=== PATIENT | male | born 1985 | race Caucasian/White ===

== ENCOUNTER 2016-12-12 15:57 | Emergency (ER) | payer OTHER ==
[~2016-12-12] VITALS: Ht 177.8 cm; Wt 72.0 kg
[2016-12-12 16:10] VITALS: TEMP 36.7; Ht 177.8 cm; Wt 72.0 kg
[2016-12-12] MEDS ORDERED: SODIUM CHLORIDE 0.9% 1000ML 1,000 ML IV STA ×2 (16:11)
[2016-12-12] MEDS ORDERED: CLON0.5T3 PO (16:28)
[2016-12-12] MEDS ORDERED: DULO60CA44 PO (16:28)
[2016-12-12 16:47] LABS: BASO % 0.4 %; BASO ABS # 0.03 K/uL (0-0.2); COMPLETE YES; EOS % 2.5 %; HEMATOCRIT 41.9 % (42-52); IG% 0.1 %; LYMPH % 22.1 %; LYMPH ABS # 1.56 K/uL (1.2-3.4); MEAN CELL VOLUME 85.2 fL (80-100); MEAN CORPUSCULAR HEMOGLOBIN 30.1 pg (25-34); MEAN CORPUSCULAR HGB CONC 35.3 g/dl (32-36); MEAN PLATELET VOLUME 9.8 fL (7.4-10.4); MONO % 8.6 %; NEUT % 66.3 %; PLATELET COUNT 237 K/uL (130-400); RED BLOOD COUNT 4.92 M/uL (4.7-6.1); WHITE BLOOD COUNT 7.07 K/uL (4.8-10.8)
--- NOTE | 2016-12-12 16:57 | EMERGENCY ROOM VISIT NOTE ---
History Report prepared by Yaron: Joce Glaser Under the Supervision of: Dr. Neri Terry M.D. First contact with patient: 16:04 Chief Complaint: SEIZURE Stated Complaint: SEIZURE History of Present Illness The patient is a 31 year old male who presents to the Emergency Room via EMS with complaints of a seizure occurring today. The patient reports being at baseline earlier today. He denies any recent illnesses. 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 He denies feeling lightheaded or having any chest pain prior to the event. He denies remembering the seizure. He lost consciousness and woke up with people standing over him. As per EMS report, the patient had a witnessed seizure which lasted for about 1 minute. He fell and hit his left upper lip. He bit his tongue. He did not have any bowel or urinary incontinence. He was post-ictal for about 2 minutes. The patient currently feels at baseline. He denies any pain. He denies headache, chest pain , shortness of breath, or any other complaints. The patient normally has a small appetite but he tried to eat a large meal today. The patient denies any prior history of seizures. He takes Cymbalta and Klonopin for anxiety. He denies any recent changes in medications. As per brother, the patient uses a large amount of supplements. The patient's brother believes that they are all legally obtained. Source of History: patient, EMS Onset: today Position: other (global) Symptom Intensity: No pain Quality: other (seizure) Associated Symptoms: No SOB, No chest pain, No headache Review of Systems See HPI for pertinent positives & negatives. A total of 10 systems reviewed and were otherwise negative. Past Medical & Surgical Medical Problems: (1) Anxiety Family History Patient reports no known family medical history. Social History Marital Status: single Occupation Status: employed Current/Historical Medications Scheduled Clonazepam (Klonopin), 0.5 MG PO HS Duloxetine Hcl (Cymbalta), 60 MG PO HS Allergies Coded Allergies: No Known Allergies (Unverified , 12/12/16) Physical Exam Vital Signs Date Time Temp Pulse Resp B/P Pulse Ox O2 Delivery O2 Flow Rate FiO2 12/12/16 18:03 95 16 135/89 97 Room Air 12/12/16 17:09 99 12/12/16 16:10 36.7 114 18 154/107 99 Room Air Physical Exam GENERAL: Patient is in no acute distress. HEENT: Pupils are equal, round, and reactive to light. Mucous membranes are dry. Contusion to the left upper lip, no laceration requiring repair. Dentition is intact, no facial bony step offs, no scalp hematoma. Right sided tongue bite without evidence for the need for suture. NECK: No stridor, no adenopathy, no meningismus, trachea is midline. LUNGS: Clear to auscultation bilaterally, no wheeze, no rhonchi, breath sounds equal. HEART: Mildly tachycardic with a 2/6 systolic murmur and a regular rhythm. ABDOMEN: Soft, nontender, bowel sounds positive, no hernias, no peritonitis. EXTREMITIES: No cyanosis or edema, full range of motion of all the joints without pain or difficulty, no signs for acute trauma. NEUROLOGIC: Oriented x 3, no acute motor or sensory deficits, no focal weakness. SKIN: No rash, no jaundice, no diaphoresis. Medical Decision & Procedures ER Provider Diagnostic Interpretation: CT results as stated below per my review and radiologist interpretation: CT HEAD WITHOUT CONTRAST (CT) CLINICAL HISTORY: Altered mental status. Weakness. COMPARISON STUDY: No previous studies for comparison. TECHNIQUE: Axial CT of the brain is performed from the vertex to the skull base. IV contrast was not administered for this examination. CT DOSE: 537.48 mGy.cm FINDINGS: No intra or extra-axial mass lesions are visualized. There is no CT evidence of acute cortical infarction. There is no evidence of midline shift. There is no acute hemorrhage. No calvarial fractures are visualized. There is no evidence of pathologic ventricular dilatation. There is no evidence of acute sinusitis IMPRESSION: Normal noncontrast head CT. Electronically signed by: Morales Maki M.D. 12/12/2016 4:54 PM Dictated Date/Time: 12/12/2016 4:52 PM Laboratory Results 12/12/16 16:25 Red Blood Count 4.92, Mean Corpuscular Volume 85.2, Mean Corpuscular Hemoglobin 30.1, Mean Corpuscular Hemoglobin Concent 35.3, Mean Platelet Volume 9.8, Neutrophils (%) (Auto) 66.3, Lymphocytes (%) (Auto) 22.1, Monocytes (%) (Auto) 8.6, Eosinophils (%) (Auto) 2.5, Basophils (%) (Auto) 0.4, Neutrophils # (Auto) 4.68, Lymphocytes # (Auto) 1.56, Monocytes # (Auto) 0.61, Eosinophils # (Auto) 0.18, Basophils # (Auto) 0.03 12/12/16 16:25 Test 12/12/16 16:25 12/12/16 16:58 White Blood Count 7.07 K/uL (4.8-10.8) Red Blood Count 4.92 M/uL (4.7-6.1) Hemoglobin 14.8 g/dL (14.0-18.0) Hematocrit 41.9 % (42-52) Mean Corpuscular Volume 85.2 fL (80-100) Mean Corpuscular Hemoglobin 30.1 pg (25-34) Mean Corpuscular Hemoglobin Concent 35.3 g/dl (32-36) Platelet Count 237 K/uL (130-400) Mean Platelet Volume 9.8 fL (7.4-10.4) Neutrophils (%) (Auto) 66.3 % Lymphocytes (%) (Auto) 22.1 % Monocytes (%) (Auto) 8.6 % Eosinophils (%) (Auto) 2.5 % Basophils (%) (Auto) 0.4 % Neutrophils # (Auto) 4.68 K/uL (1.4-6.5) Lymphocytes # (Auto) 1.56 K/uL (1.2-3.4) Monocytes # (Auto) 0.61 K/uL (0.11-0.59) Eosinophils # (Auto) 0.18 K/uL (0-0.5) Basophils # (Auto) 0.03 K/uL (0-0.2) RDW Standard Deviation 40.0 fL (36.4-46.3) RDW Coefficient of Variation 12.8 % (11.5-14.5) Immature Granulocyte % (Auto) 0.1 % Immature Granulocyte # (Auto) 0.01 K/uL (0.00-0.02) Anion Gap 11.0 mmol/L (3-11) Est Creatinine Clear Calc Drug Dose 84.6 ml/min Estimated GFR () 84.9 Estimated GFR (Non- 73.2 BUN/Creatinine Ratio 12.5 (10-20) Calcium Level 8.8 mg/dl (8.5-10.1) Magnesium Level 1.9 mg/dl (1.8-2.4) Total Bilirubin 0.4 mg/dl (0.2-1) Aspartate Amino Transf (AST/SGOT) 18 U/L (15-37) Alanine Aminotransferase (ALT/SGPT) 24 U/L (12-78) Alkaline Phosphatase 69 U/L (45-117) Total Creatine Kinase 132 U/L (39-308) Total Protein 7.4 gm/dl (6.4-8.2) Albumin 4.4 gm/dl (3.4-5.0) Globulin 3.0 gm/dl (2.5-4.0) Albumin/Globulin Ratio 1.5 (0.9-2) Thyroid Stimulating Hormone (TSH) 3.260 uIu/ml (0.300-4.500) Urine Color YELLOW Urine Appearance CLEAR (CLEAR) Urine pH 6.0 (4.5-7.5) Urine Specific Carnation 1.016 (1.000-1.030) Urine Protein NEG (NEG) Urine Glucose (UA) NEG (NEG) Urine Ketones NEG (NEG) Urine Occult Blood NEG (NEG) Urine Nitrite NEG (NEG) Urine Bilirubin NEG (NEG) Urine Urobilinogen NEG (NEG) Urine Leukocyte Esterase NEG (NEG) Laboratory results reviewed by me. Medications Administered Medications (Trade) Dose Ordered Sig/Vasyl Route Start Time Stop Time Status Last Admin Dose Admin Sodium Chloride 1,000 ml @ 999 mls/hr Q1H1M STAT IV 12/12/16 16:11 12/12/16 17:11 DC 12/12/16 16:35 999 MLS/HR Sodium Chloride (Nss 1000ml) 1,000 ml @ 200 mls/hr Q5H STAT IV 12/12/16 16:11 12/12/16 18:42 DC 12/12/16 17:21 200 MLS/HR ECG Indication: other (Seizure) Rate (beats per minute): 105 Rhythm: sinus tachycardia Findings: 1st degree AV block, no acute ischemic change, no ectopy ED Course 1604: The patient was evaluated in room B02. A complete history and physical exam was performed. 1611: Sodium Chloride 1000 ml @ 999 mls/hr IV, Sodium Chloride 1000 ml @ 999 mls /hr IV 1740: I discussed the patient's case with Dr. Razo, neurologist with [facility]. He agreed that the patient cannot drive and needs follow up. The patient is unable to follow up with [facility] due to his insurance and Dr. Razo recommended me to consult with the other group as well. 174: I discussed the patient's case with Dr. Mars, neurologist with [facility]. He recommended discharging the patient home. Dr. Mars will see him as an outpatient. He recommended no anti-seizure medications for now. 175: Reevaluated the patient. Discussed results and discharge instructions: He verbalized understanding and agreement. 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 The patient is ready for discharge. Medical Decision Differential diagnosis includes but is not limited to syncope with seizure, seizure, electrolyte imbalance, dehydration, medication reaction, intracranial bleed or mass, dysrhythmia. There is no leukocytosis or concerning anemia. No significant electrolyte abnormality, kidney failure or hepatitis. The patient appears to be in a euthyroid state. EKG shows a mild sinus tachycardia, no acute ischemia. Brain CT shows no acute bleed or mass effect. Urinalysis does not show evidence for infection. On exam, the patient was not toxic or febrile. He had a normal neurologic evaluation. The patient was given IV saline for hydration, no further seizure activity noted during his ER stay. I discussed the patient's case with the on-call neurologist. The patient is being discharged to be followed up in the office as an outpatient. No antiseizure medications to be started today. The patient was told that he could not drive, ride a bicycle, swim or fly a plane. 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 The patient was encouraged to return here for any return of symptoms. He was told to stay well-hydrated and to sleep regularly and for about 8 hours per night. Consults Time Called: 173 Consulting Physician: Dr. Razo, neurologist with [facility] Returned Call: 174 I discussed the patient's case with Dr. Razo, neurologist with [facility]. He agreed that the patient cannot drive and needs follow up. The patient is unable to follow up with [facility] due to his insurance and Dr. Razo recommended me to consult with the other group as well. Additional Consults: Time Called: 174 Consulted Physician: Dr. Mars, neurologist with [facility] Returned Call: [phone] Additional Comments: I discussed the patient's case with Dr. Mars, neurologist with [facility]. He recommended discharging the patient home. Dr. Mars will see him as an outpatient. He recommended no anti-seizure medications for now. Impression Primary Impression: Seizure-like activity Scribe Attestation The scribe's documentation has been prepared under my direction and personally reviewed by me in its entirety. I confirm that the note above accurately reflects all work, treatment, procedures, and medical decision making performed by me. Departure Information Dispostion Home / Self-Care Referrals No Doctor, Assigned (PCP) Josiah Mars M.D. Forms HOME CARE DOCUMENTATION FORM, IMPORTANT VISIT INFORMATION Patient Instructions My [facility] Additional Instructions proper sleep--8 hours per night stay well hydrated stop all supplements for now see neurology--call tomorrow for an appt return for any return of symptoms no driving, flying a plane, swimming, bike riding until cleared by neurology all testing was ok today
[2016-12-12 17:22] LABS: BUN/CREATININE RATIO 12.5 (10-20); CALCIUM 8.8 mg/dl (8.5-10.1); CREATININE 1.3 mg/dl (0.60-1.40); MAGNESIUM 1.9 mg/dl (1.8-2.4); POTASSIUM 3.6 mmol/L (3.5-5.1)
[2016-12-12 17:23] LABS: URINE APPEARANCE CLEAR (CLEAR); URINE BILIRUBIN NEG (NEG); URINE COLOR YELLOW; URINE NITRITE NEG (NEG); URINE SPECIFIC GRAVITY 1.016 (1.000-1.030); UROBILINOGEN NEG (NEG); ZZUR CULT IF INDIC CLEAN CATCH NO
[2016-12-12 17:27] LABS: MANUAL MICROSCOPIC REQUIRED? NO; REVIEW REQ? NO
[2016-12-12 17:32] LABS: ALB/GLOB RATIO 1.5 (0.9-2); THYROID STIMULATING HORMONE 3.26 uIu/ml (0.300-4.500)
[2016-12-12 18:03] VITALS: BP 135/89; PULSE 95; O2SAT 97
== END 2016-12-12 18:30 | disposition home or self-care (01) ==
LOC: EDBD 15:57 → C.EDB 15:58
DX: R56.9 Unspecified convulsions (principal); F41.9 Anxiety disorder, unspecified; Z79.899 Other long term (current) drug therapy

== ENCOUNTER → 2016-12-25 | Outpatient (CLI) | payer OTHER ==
[~2016-12-25] MED LIST: CLON0.5T3 PO; DULO60CA44 PO; GADAVIST IV PRN
--- NOTE | 2016-12-25 13:10 | DIAGNOSTIC IMAGING REPORT ---
MRI OF THE BRAIN WITHOUT AND WITH IV CONTRAST CLINICAL HISTORY: SEIZURE LIKE ACTIVITY COMPARISON STUDY: Head CT dated 12/12/2016 TECHNIQUE: MRI of the brain was performed from the vertex to the skull base utilizing various T1 and T2 weighted sequences. Following the IV administration of 7 mL of Gadavist contrast, additional enhanced images were obtained. FINDINGS: Sagittal T1, axial diffusion, proton density and T2 weighted axial, coronal FLAIR, and pre and post axial T1-weighted images were acquired. These were supplemented with post gadolinium coronal T1 weighted images. Thin section coronal T2-weighted images through the temporal lobes were also acquired. No intra or extra-axial mass lesions are visualized. Axial diffusion-weighted images reveal no evidence of acute or subacute infarction. There is no evidence of ventricular dilatation. Proton density T2-weighted and FLAIR images reveal a tiny focus of increased T2 signal within the left midbrain. This is of doubtful acute clinical significance. There are no abnormal flow voids. There is no evidence of pathologic enhancement. The hippocampal formations appear symmetric There is mucosal thickening within the maxillary sinuses. IMPRESSION: Tiny nonspecific focus of increased T2 signal within the left midbrain. This finding is of doubtful acute clinical significance. Otherwise normal MRI the brain. Electronically signed by: Morales Maki M.D. 12/25/2016 1:09 PM Dictated Date/Time: 12/25/2016 1:04 PM
== END | disposition home or self-care (01) ==
LOC: C.MRIBC 12:09
PROVIDERS: ATTEND Physician Assistant
DX: R56.9 Unspecified convulsions (principal); R90.89 Other abnormal findings on diagnostic imaging of central nervous system

== ENCOUNTER → 2016-12-25 | Outpatient (CLI) | payer OTHER ==
[~2016-12-25] MED LIST changes: -GADAVIST IV PRN
--- NOTE | 2016-12-27 13:43 | EEG Procedure Note ---
EEG Procedure Note Date of Service Dec 25, 2016. Start / End Times Start Time: 2:46 PM End Time: 3:07 PM Referring Physician Michelle Case History This is a 31-year-old male with seizure-like activity and syncope. EEG for further evaluation of possible seizure etiology. Home Medication List Scheduled Clonazepam (Klonopin), 0.5 MG PO HS Duloxetine Hcl (Cymbalta), 60 MG PO HS Description This is a 21 electrode EEG with a single channel dedicated to limited EKG. The electrodes were placed in accordance with the International 10-20 system. At the start of the recording the patient was in an awake state. Background was well organized and composed of symmetric mixed alpha and beta frequencies. There was a symmetric well-formed moderate amplitude 9-10 Hz posterior dominant rhythm that was reactive to eye opening and closure. Hyperventilation with good effort produced no abnormalities. Intermittent photic stimulation at various frequencies produced no abnormalities. There was no state changes or sleep transients. Interpretation This is a normal awake only routine EEG. There was no electrographic seizures or epileptiform discharges. Clinical Correlation A normal EEG does not rule out epilepsy if there is a strong clinical suspicion.
== END | disposition home or self-care (01) ==
LOC: C.NEUR 14:10
PROVIDERS: ATTEND Physician Assistant
DX: R56.9 Unspecified convulsions (principal)